=== PATIENT | female | born 2000 | race African-American/Black ===

== ENCOUNTER 2024-01-12 04:46 | Emergency (ER) | payer MEDICAID | END 2024-01-12 05:20 | disposition home or self-care (01) | LOC: ERS 04:46 | DX: T43.621A Poisoning by amphetamines, accidental (unintentional), initial encounter (principal); F90.9 Attention-deficit hyperactivity disorder, unspecified type; Z55.0 Illiteracy and low-level literacy | CPT/HCPCS: 99283 ==